=== PATIENT | female | born 1965 | race American Indian/Alaskan Native ===

== ENCOUNTER 2018-05-20 16:21 | Emergency (ER) | payer MEDICARE ==
[2018-05-20 17:32] LABS: Bilirubin,Urine NEG (Negative); Blood,Urine NEG (Negative); Color,Urine Yellow (Yellow); Mucus,Urine FEW /HPF; Protein,Urine <15 mg/dL mg/dL (Negative)
[2018-05-20 19:29] LABS: Hematocrit 44.8 % (30.3-42.9); Hemoglobin 14.9 gm/dl (10.1-14.3); Mean Corpuscular HGB Conc 33 % (30-34); Mean Corpuscular Hemoglobin 30 pg (28-32); Mean Corpuscular Volume 90 fl (79-97); Platelet Count 211 K/mm3 (140-440); Red Cell Distribution Width 14.5 % (13.2-15.2)
[2018-05-20 19:44] LABS: BUN/Creatinine Ratio 14; Blood Urea Nitrogen 10 mg/dL (7-17); Calcium 9.1 mg/dL (8.4-10.2); Hemolysis Index 138
--- NOTE | 2018-05-20 22:29 | XRay Report ---
FINAL REPORT PROCEDURE: XR ABD SERIES W CXR 1V TECHNIQUE: Abdominal series complete, including supine and upright AP views of the abdomen and frontal chest. HISTORY: gen abd pain COMPARISON: No prior studies are available for comparison. FINDINGS: Heart: Normal. Mediastinum/Vessels: Normal. Lungs/Pleural space: No infiltrate, effusion, or pneumothorax. Bowel gas pattern: Nonobstructive. Masses or calcifications: Probable cholelithiasis. Bony structures: Lumbar spine degenerative disc changes. Other: No free intraperitoneal air. IMPRESSION: Probable cholelithiasis. Nonobstructive bowel gas pattern.
--- NOTE | 2018-05-20 23:03 | Emergency Department Report ---
ED Abdominal Pain HPI - General Chief Complaint: Pain General Stated Complaint: BODY PAIN/WEAKNESS Time Seen by Provider: 05/20/18 21:22 Source: patient Mode of arrival: Ambulatory Limitations: No Limitations - History of Present Illness Initial Comments: Patient is a 52-year-old [place] female states yesterday she had a sharp right lower quadrant pain occurring intermittently is gone now. Patient states that the pain also was in her bilateral arms. Patient states she felt slightly nauseous but has not vomited. Patient is denying any vaginal bleeding dysuria fevers chills diarrhea at this time. - Related Data Home Medications Medication Instructions Recorded Confirmed Last Taken Lisinopril 10 mg PO DAILY 08/05/13 08/05/13 08/10/13 Meloxicam 15 mg PO DAILY 08/05/13 08/05/13 08/12/13 Previous Rx's Medication Instructions Recorded Last Taken Type raNITIdine HCl [Ranitidine 150mg 150 mg PO BID #60 cap 08/05/13 08/11/13 Rx Cap] Allergies Allergy/AdvReac Type Severity Reaction Status Date / Time No Known Allergies Allergy Verified 08/13/13 08:28 ED Review of Systems ROS: Stated complaint: BODY PAIN/WEAKNESS Other details as noted in HPI Comment: All other systems reviewed and negative ED Past Medical Hx - Past Medical History Hx Hypertension: Yes Hx Heart Attack/AMI: No Hx GERD: Yes Hx Liver Disease: No Hx Renal Disease: No Hx Sickle Cell Disease: No Hx Arthritis: Yes (DJD) Hx Seizures: No Hx Psychiatric Treatment: Yes (anxiety) Hx Asthma: No Hx COPD: No Additional medical history: umbilical hernia - Surgical History Hx Pacemaker: No Hx Internal Defibrillator: No Additional Surgical History: 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, tubiligation - Social History Smoking Status: Never Smoker Substance Use Type: None - Medications Home Medications: Home Medications Medication Instructions Recorded Confirmed Last Taken Type Lisinopril 10 mg PO DAILY 08/05/13 08/05/13 08/10/13 History Meloxicam 15 mg PO DAILY 08/05/13 08/05/13 08/12/13 History raNITIdine HCl [Ranitidine 150mg 150 mg PO BID #60 cap 08/05/13 08/11/13 Rx Cap] ED Physical Exam - General Limitations: No Limitations General appearance: alert, in no apparent distress - Head Head exam: Present: atraumatic, normocephalic - Eye Eye exam: Present: normal appearance - ENT ENT exam: Present: mucous membranes moist - Neck Neck exam: Present: normal inspection - Respiratory Respiratory exam: Present: normal lung sounds bilaterally. Absent: respiratory distress, wheezes, rales, rhonchi - Cardiovascular Cardiovascular Exam: Present: regular rate, normal rhythm. Absent: systolic murmur, diastolic murmur, rubs, gallop - GI/Abdominal GI/Abdominal exam: Present: soft, normal bowel sounds. Absent: distended, tenderness, guarding, rebound - Extremities Exam Extremities exam: Present: normal inspection - Back Exam Back exam: Present: normal inspection - Neurological Exam Neurological exam: Present: alert, oriented X3 - Psychiatric Psychiatric exam: Present: normal affect, normal mood - Skin Skin exam: Present: warm, dry, intact, normal color. Absent: rash ED Course Vital Signs 05/20/18 05/20/18 16:34 21:15 Temperature 98.5 F Pulse Rate 85 Respiratory 18 18 Rate Blood Pressure 144/81 O2 Sat by Pulse 98 98 Oximetry ED Medical Decision Making - Lab Data Result diagrams: 05/20/18 18:59 05/20/18 18:59 - Radiology Data Patient: CHANCE UMANZOR MR#: [id number] : 1965 Acct:[id number] Age/Sex: 52 / F ADM Date: 05/20/18 Loc: ED Attending Dr: Ordering Physician: CALISTA CARTER MD Date of Service: 05/20/18 Procedure(s): XR abd series w cxr 1V Accession Number(s): [id number] cc: CALISTA CARTER MD Fluoro Time In Minutes: FINAL REPORT PROCEDURE: XR ABD SERIES W CXR 1V TECHNIQUE: Abdominal series complete, including supine and upright AP views of the abdomen and frontal chest. HISTORY: gen abd pain COMPARISON: No prior studies are available for comparison. FINDINGS: Heart: Normal. Mediastinum/Vessels: Normal. Lungs/Pleural space: No infiltrate, effusion, or pneumothorax. Bowel gas pattern: Nonobstructive. Masses or calcifications: Probable cholelithiasis. Bony structures: Lumbar spine degenerative disc changes. Other: No free intraperitoneal air. IMPRESSION: Probable cholelithiasis. Nonobstructive bowel gas pattern. Transcribed By: [facility] Dictated By: PRESTON MILLER M.D. Electronically Authenticated By: PRESTON MILLER M.D. Signed Date/Time: 05/20/182228 - Medical Decision Making Patient with probable gallstones on x-ray interpretation. The patient's pain was not in the right upper quadrant. Patient may have had some mild gastroenteritis type symptoms worsen bowel cramping. Patient is discharged home with GI follow-up. Critical care attestation.: If time is entered above; I have spent that time in minutes in the direct care of this critically ill patient, excluding procedure time. ED Disposition Clinical Impression: Gallstones Abdominal pain Qualifiers: Abdominal location: right lower quadrant Qualified Code(s): R10.31 - Right lower quadrant pain Disposition: DC-01 TO HOME OR SELFCARE Is pt being admited?: No Does the pt Need Aspirin: No Condition: Stable Instructions: Biliary Colic (ED) Referrals: JOSESITO GARCIA MD [Staff Physician] - 3-5 Days Time of Disposition: 23:11
[2018-05-20 23:28] VITALS: BP 136/74
== END 2018-05-20 23:28 | disposition home or self-care (01) ==
LOC: ED 16:21
DX: K80.80 Other cholelithiasis without obstruction (principal); I10 Essential (primary) hypertension; K21.9 Gastro-esophageal reflux disease without esophagitis; M19.90 Unspecified osteoarthritis, unspecified site; F41.9 Anxiety disorder, unspecified; Z98.51 Tubal ligation status
CPT/HCPCS: 36415; 74022; 80048; 81001; 85027; 99284